=== PATIENT | female | born 1950 | race Two or more races ===

== ENCOUNTER 2022-06-06 06:27 | Day surgery (SDC) | payer OTHER | END 2022-06-06 12:05 | disposition home or self-care (01) | LOC: AMB-ENDOS 06:27 | PROVIDERS: ATTEND Colon & Rectal Surgery | DX: D37.4 Neoplasm of uncertain behavior of colon (principal); Z20.822 Contact with and (suspected) exposure to COVID-19; Z85.038 Personal history of other malignant neoplasm of large intestine; K64.4 Residual hemorrhoidal skin tags; I10 Essential (primary) hypertension; E11.9 Type 2 diabetes mellitus without complications; E03.9 Hypothyroidism, unspecified; Z88.6 Allergy status to analgesic agent; Z91.013 Allergy to seafood ==

== ENCOUNTER 2025-04-21 06:00 | Day surgery (SDC) | payer OTHER ==
[2025-04-21] MEDS ORDERED: MIDAZOLAM HCL 2 MG/2 ML VIAL IV ONE (08:45)
[2025-04-21] MEDS ORDERED: DIPHENHYDRAMINE HCL 50 MG/ML VIAL 1ML IV ONE (08:45)
[2025-04-21] MEDS ORDERED: ONDANSETRON HCL 2 MG/ML VIAL IV ONE (08:45)
[2025-04-21] MEDS ORDERED: fentaNYL CITRATE 50 MCG/ML AMPUL IV PUSH ONE (08:45)
== END 2025-04-21 09:40 | disposition home or self-care (01) ==
LOC: AMB-ENDOS 06:00
PROVIDERS: ATTEND Colon & Rectal Surgery
DX: K62.1 Rectal polyp (principal); Z86.0100 Personal history of colon polyps, unspecified; Z88.2 Allergy status to sulfonamides